=== PATIENT | female | born 1930 | race Caucasian/White ===

== ENCOUNTER 2017-10-12 09:28 | Inpatient (IN) | payer MEDICARE, OTHER, BC ==
[2017-10-12 12:09] LABS: ADD MAN DIFF? NO
[2017-10-12 12:20] LABS: WHITE BLOOD COUNT 5.4 10^3/ul (4.8-10.8)
[2017-10-12 12:20] LABS: ADD UMIC YES; BASOPHILS % 0.6 % (0.0-2.0); EOSINOPHILS % 0.7 % (0.0-7.0); HEMATOCRIT 43.4 % (37.0-47.0); LYMPHOCYTES # 1.7 10^3/ul (0.8-2.9); LYMPHOCYTES % 32.3 % (15.0-51.0); MEAN CORPUSCULAR HGB CONC 32.3 g/dl (32.0-37.0); MEAN CORPUSCULAR VOLUME 96.2 fl (82.0-101.0); MEAN PLATELET VOLUME 11.4 fl (7.4-10.4); MONOCYTE # 0.6 10^3/ul (0.3-0.9); MONOCYTES % 10.2 % (0.0-11.0); PLATELET COUNT 112 10^3/UL (140-415); RED BLOOD COUNT 4.51 10^6/ul (4.20-5.40); RED CELL DISTRIBUTION WIDTH 14.3 % (11.5-14.5); UR ASCORBIC ACID NEGATIVE (NEGATIVE); UR BILIRUBIN (Dip) NEGATIVE (NEGATIVE); UR BLOOD (Dip) 1+ mg/dL (NEGATIVE); UR CLARITY CLEAR (CLEAR); UR COLOR YELLOW (YELLOW); UR GLUCOSE (Dip) NEGATIVE (NEGATIVE); UR KETONES (Dip) NEGATIVE (NEGATIVE); UR LEUKOCYTE ESTERASE (Dip) TRACE Leu/ul (NEGATIVE); UR NITRITE (Dip) NEGATIVE (NEGATIVE); UR RBC 1 /HPF (0-5); UR SPECIFIC GRAVITY (Dip) 1.015 (1.003-1.030); UR TOTAL PROTEIN (Dip) NEGATIVE (NEGATIVE); UR UROBILINOGEN (Dip) NEGATIVE (NEGATIVE); UR WBC 0 /HPF (0-5)
[2017-10-12 12:31] LABS: ANION GAP 15 (8-16); BLOOD UREA NITROGEN 20 mg/dl (7-20); CALCIUM 9.4 mg/dl (8.4-10.2); CARBON DIOXIDE 29 mmol/L (21-31); CHLORIDE 105 mmol/L (97-110); GLUCOSE 95 mg/dl (70-220); POTASSIUM 4.6 mmol/L (3.5-5.1); SODIUM 144 mmol/L (135-144)
[2017-10-12 12:40] LABS: OPIATES Negative (NEGATIVE)
[2017-10-12 12:46] LABS: AMPHETAMINE/METHAMPHETAMINE Negative (NEGATIVE); BARBITURATES Negative (NEGATIVE); BENZODIAZEPINES Negative (NEGATIVE); CANNABINOIDS Negative (NEGATIVE); COCAINE Negative (NEGATIVE); TROPONIN-I < 0.012 ng/ml (0.00-0.12)
[2017-10-12 12:48] LABS: HEMOGLOBIN A1C 5.4 % (0-5.9)
[2017-10-12 12:50] LABS: INR 0.98; PARTIAL THROMBOPLASTIN TIME 34.2 Sec (25.0-35.0); PROTIME 13.1 Sec (11.9-14.9)
[2017-10-12] MEDS: ASPIRIN 325 MG TAB PO (13:47)
[2017-10-12] MEDS ORDERED: ONDANSETRON 4 MG INJ IV (14:30)
[2017-10-12] MEDS: ACETAMINOPHEN 325 MG TAB PO (20:38)
[2017-10-13] MEDS ORDERED: ONDANSETRON 4 MG INJ IV (09:30)
[2017-10-13] MEDS: PANTOPRAZOLE (EC) 40 MG TAB PO (09:53)
[2017-10-13] MEDS: DOCUSATE SODIUM 100 MG CAP PO ×2 (09:53→21:42)
[2017-10-13] MEDS: ASPIRIN 81 MG TAB PO (09:53)
[2017-10-13] MEDS: ENOXAPARIN 30 MG/0.3 ML SYG SC (09:54)
[2017-10-13] MEDS: FUROSEMIDE 20 MG INJ IV (10:51)
[2017-10-13 11:28] LABS: ADD MAN DIFF? NO
[2017-10-13 11:35] LABS: WHITE BLOOD COUNT 3.9 10^3/ul (4.8-10.8)
[2017-10-13 11:35] LABS: BASOPHILS % 0.5 % (0.0-2.0); EOSINOPHILS # 0.1 10^3/ul (0.0-0.5); EOSINOPHILS % 1.6 % (0.0-7.0); HEMATOCRIT 41.7 % (37.0-47.0); HEMOGLOBIN 13.6 g/dl (12.0-16.0); LYMPHOCYTES # 1.2 10^3/ul (0.8-2.9); LYMPHOCYTES % 30.5 % (15.0-51.0); MEAN CORPUSCULAR HEMOGLOBIN 31.5 pg (29.0-33.0); MEAN CORPUSCULAR HGB CONC 32.6 g/dl (32.0-37.0); MEAN CORPUSCULAR VOLUME 96.5 fl (82.0-101.0); MEAN PLATELET VOLUME 11.3 fl (7.4-10.4); MONOCYTE # 0.4 10^3/ul (0.3-0.9); MONOCYTES % 9.8 % (0.0-11.0); NEUTROPHIL # 2.2 10^3/ul (1.6-7.5); NEUTROPHILS % 57.3 % (39.0-77.0); PLATELET COUNT 108 10^3/UL (140-415); RED BLOOD COUNT 4.32 10^6/ul (4.20-5.40); RED CELL DISTRIBUTION WIDTH 14.2 % (11.5-14.5)
[2017-10-13 11:38] LABS: POSITIVE DIFF @See below
[2017-10-13 11:51] LABS: ANION GAP 14 (8-16); BLOOD UREA NITROGEN 19 mg/dl (7-20); CARBON DIOXIDE 28 mmol/L (21-31); CHLORIDE 104 mmol/L (97-110); CREATINE KINASE 69 IU/L (23-200); CREATININE 1.13 mg/dl (0.44-1.00); GLUCOSE 146 mg/dl (70-220); MAGNESIUM 1.8 mg/dl (1.7-2.5); POTASSIUM 4.4 mmol/L (3.5-5.1); SODIUM 142 mmol/L (135-144)
[2017-10-13 12:01] LABS: CK INDEX 1.7; CK-MB 1.19 ng/ml (0.0-2.4)
[2017-10-13 12:14] LABS: TROPONIN-I < 0.012 ng/ml (0.00-0.12)
[2017-10-13 12:15] LABS: B-TYPE NATRIURETIC PEPTIDE 6950 PG/ML (0-450)
[2017-10-13 13:51] LABS: ALANINE AMINOTRANSFERASE 26 IU/L (13-69); ALBUMIN 3.5 g/dl (3.3-4.9); ALKALINE PHOSPHATASE 102 IU/L (42-121); ASPARTATE AMINO TRANSFERASE 31 IU/L (15-46); BILIRUBIN,INDIRECT 0.6 mg/dl (0-1.1); BILIRUBIN,TOTAL 0.6 mg/dl (0.2-1.3); TOTAL PROTEIN 6.6 g/dl (6.1-8.1)
[2017-10-13 14:38] LABS: CREATINE KINASE 77 IU/L (23-200)
[2017-10-13 14:49] LABS: CK INDEX 1.8; CK-MB 1.35 ng/ml (0.0-2.4)
[2017-10-13 14:54] LABS: TROPONIN-I < 0.012 ng/ml (0.00-0.12)
[2017-10-13] MEDS: ACETAMINOPHEN 325 MG TAB PO (18:43)
[2017-10-13] MEDS: RANITIDINE 150 MG TAB PO (23:54)
[2017-10-14] MEDS: PANTOPRAZOLE (EC) 40 MG TAB PO (06:30)
[2017-10-14 07:12] LABS: ADD MAN DIFF? NO
[2017-10-14 07:23] LABS: WHITE BLOOD COUNT 4.3 10^3/ul (4.8-10.8)
[2017-10-14 07:23] LABS: BASOPHILS % 0.2 % (0.0-2.0); EOSINOPHILS # 0.1 10^3/ul (0.0-0.5); EOSINOPHILS % 2.8 % (0.0-7.0); HEMATOCRIT 45.5 % (37.0-47.0); HEMOGLOBIN 14.7 g/dl (12.0-16.0); LYMPHOCYTES # 1.7 10^3/ul (0.8-2.9); LYMPHOCYTES % 39.4 % (15.0-51.0); MEAN CORPUSCULAR HEMOGLOBIN 30.7 pg (29.0-33.0); MEAN CORPUSCULAR HGB CONC 32.3 g/dl (32.0-37.0); MEAN PLATELET VOLUME 11.5 fl (7.4-10.4); MONOCYTE # 0.5 10^3/ul (0.3-0.9); MONOCYTES % 10.6 % (0.0-11.0); NEUTROPHILS % 46.8 % (39.0-77.0); PLATELET COUNT 110 10^3/UL (140-415); RED BLOOD COUNT 4.79 10^6/ul (4.20-5.40); RED CELL DISTRIBUTION WIDTH 14.5 % (11.5-14.5)
[2017-10-14 07:37] LABS: ANION GAP 15 (8-16); BLOOD UREA NITROGEN 29 mg/dl (7-20); CALCIUM 9.3 mg/dl (8.4-10.2); CARBON DIOXIDE 31 mmol/L (21-31); CHLORIDE 102 mmol/L (97-110); CREATININE 1.31 mg/dl (0.44-1.00); GLUCOSE 94 mg/dl (70-220); POTASSIUM 4.2 mmol/L (3.5-5.1); SODIUM 144 mmol/L (135-144)
[2017-10-14] MEDS: METOPROLOL 50 MG TAB PO (08:24)
[2017-10-14] MEDS: RANITIDINE 150 MG TAB PO (08:24)
[2017-10-14] MEDS: ASPIRIN 81 MG TAB PO (08:24)
[2017-10-14] MEDS: ENOXAPARIN 30 MG/0.3 ML SYG SC (08:29)
[2017-10-14] MEDS: DOCUSATE SODIUM 100 MG CAP PO (09:47)
[2017-10-14 12:22] LABS: CHOL/HDL RATIO 4.6 RATIO; HDL CHOLESTEROL 38 mg/dl (33-92); LDL CHOLESTEROL,CALCULATED 112 mg/dl; TRIGLYCERIDES 128 mg/dl (0-149)
[2017-10-14 12:22] LABS: CHOLESTEROL 176 mg/dl (100-200)
[2017-10-15] MEDS ORDERED: INFLUENZA VIRUS VACCINE 0.5 ML (DISPENSING) IM* (09:00)
== END 2017-10-14 18:44 | disposition home or self-care (01) | DRG 292 ==
LOC: FTE 09:28 → MS4 14:02
DX: I50.21 Acute systolic (congestive) heart failure (principal); N17.9 Acute kidney failure, unspecified; I25.5 Ischemic cardiomyopathy; I34.0 Nonrheumatic mitral (valve) insufficiency; N18.9 Chronic kidney disease, unspecified; R42 Dizziness and giddiness; Z91.81 History of falling; Z95.810 Presence of automatic (implantable) cardiac defibrillator; Z79.82 Long term (current) use of aspirin
CPT/HCPCS: 36415; 70450; 71045; 80048; 80061; 80076; 80307; 81001; 82550; 82553; 82962; 83036; 83735; 83880; 84443; 84484; 85025; 85610; 85730; 87086; 92610; 93005; 93306; 93880; 97116; 97161; 97530; 99285-25; J1940